=== PATIENT | female | born 1965 | race Caucasian/White ===

== ENCOUNTER 2018-10-16 18:56 | Inpatient (IN) | payer MEDICAID ==
[2018-10-16] MEDS: morphine 4 MG/ML VIAL IV (21:02)
[2018-10-16] MEDS: ONDANSETRON 4 MG INJ IV ×2 (21:02→23:57)
[2018-10-16] MEDS: SOD CHLORIDE 0.9% 1,000 ML IV (21:02)
[2018-10-16] MEDS: IOHEXOL 300MG/ML 150 ML BTL (21:53)
[2018-10-16] MEDS: SOD CHLORIDE 0.9% 100 ML (21:53)
[2018-10-16] MEDS: LIDOCAINE/MYLANTA 40 ML BTL PO (21:57)
[2018-10-16] MEDS: BELLADONNA/PHENOBARBITAL TAB PO (21:57)
[2018-10-16 22:04] LABS: ADD MAN DIFF? NO
[2018-10-16 22:12] LABS: BASOPHILS % 0.4 % (0.0-2.0); EOSINOPHILS # 0.1 10^3/ul (0.0-0.5); EOSINOPHILS % 0.9 % (0.0-7.0); HEMATOCRIT 37.9 % (37.0-47.0); HEMOGLOBIN 12.4 g/dl (12.0-16.0); LYMPHOCYTES # 2.8 10^3/ul (0.8-2.9); LYMPHOCYTES % 36.7 % (15.0-51.0); MEAN CORPUSCULAR HGB CONC 32.7 g/dl (32.0-37.0); MEAN CORPUSCULAR VOLUME 91.5 fl (82.0-101.0); MEAN PLATELET VOLUME 11.6 fl (7.4-10.4); MONOCYTE # 0.5 10^3/ul (0.3-0.9); MONOCYTES % 6.2 % (0.0-11.0); NEUTROPHIL # 4.2 10^3/ul (1.6-7.5); NEUTROPHILS % 55.5 % (39.0-77.0); PLATELET COUNT 239 10^3/UL (140-415); RED BLOOD COUNT 4.14 10^6/ul (4.20-5.40); RED CELL DISTRIBUTION WIDTH 14.4 % (11.5-14.5)
[2018-10-16 22:12] LABS: WHITE BLOOD COUNT 7.5 10^3/ul (4.8-10.8)
[2018-10-16 22:16] LABS: ADD UMIC NO; UR ASCORBIC ACID NEGATIVE (NEGATIVE); UR BILIRUBIN (Dip) NEGATIVE (NEGATIVE); UR BLOOD (Dip) NEGATIVE (NEGATIVE); UR CLARITY CLEAR (CLEAR); UR COLOR STRAW (YELLOW); UR GLUCOSE (Dip) NEGATIVE (NEGATIVE); UR KETONES (Dip) NEGATIVE (NEGATIVE); UR LEUKOCYTE ESTERASE (Dip) NEGATIVE Leu/ul (NEGATIVE); UR NITRITE (Dip) NEGATIVE (NEGATIVE); UR SPECIFIC GRAVITY (Dip) 1.003 (1.003-1.030); UR TOTAL PROTEIN (Dip) NEGATIVE (NEGATIVE); UR UROBILINOGEN (Dip) NEGATIVE (NEGATIVE)
[2018-10-16 22:30] LABS: ALANINE AMINOTRANSFERASE 22 IU/L (13-69); ALBUMIN 4.1 g/dl (3.3-4.9); ALBUMIN/GLOBULIN RATIO 1.13; ALKALINE PHOSPHATASE 63 IU/L (42-121); AMYLASE 82 U/L (11-123); ANION GAP 11 (5-13); ASPARTATE AMINO TRANSFERASE 23 IU/L (15-46); BILIRUBIN,INDIRECT 0.4 mg/dl (0-1.1); BILIRUBIN,TOTAL 0.4 mg/dl (0.2-1.3); BLOOD UREA NITROGEN 10 mg/dl (7-20); CALCIUM 9.3 mg/dl (8.4-10.2); CARBON DIOXIDE 22 mmol/L (21-31); CHLORIDE 107 mmol/L (97-110); CREATININE 0.65 mg/dl (0.44-1.00); Estimated GFR > 60 mL/min (>60); GLUCOSE 139 mg/dl (70-220); LIPASE 57 U/L (23-300); POTASSIUM 3.4 mmol/L (3.5-5.1); SODIUM 140 mmol/L (135-144); TOTAL PROTEIN 7.7 g/dl (6.1-8.1)
[2018-10-16 22:31] LABS: INR 0.96; PROTIME 12.9 Sec (11.9-14.9)
[2018-10-16 22:32] LABS: PARTIAL THROMBOPLASTIN TIME 35.8 Sec (23.0-35.0)
[2018-10-16 22:41] LABS: TROPONIN-I < 0.012 ng/ml (0.000-0.120)
[2018-10-16] MEDS: HYDROmorphONE 1 MG/ML SYG IV (23:54)
[2018-10-17] MEDS ORDERED: METOCLOPRAMIDE 10 MG INJ IV
[2018-10-17] MEDS ORDERED: NACL 0.9% 3 ML SYG IV
[2018-10-17] MEDS: SOD CHLORIDE 0.9% 1,000 ML IV ×3 (00:06→22:27)
[2018-10-17 07:22] LABS: ADD MAN DIFF? NO
[2018-10-17 07:32] LABS: BASOPHILS % 0.3 % (0.0-2.0); EOSINOPHILS # 0.1 10^3/ul (0.0-0.5); EOSINOPHILS % 1.5 % (0.0-7.0); HEMATOCRIT 34.2 % (37.0-47.0); HEMOGLOBIN 11.2 g/dl (12.0-16.0); LYMPHOCYTES # 2.6 10^3/ul (0.8-2.9); LYMPHOCYTES % 41.9 % (15.0-51.0); MEAN CORPUSCULAR HEMOGLOBIN 30.1 pg (29.0-33.0); MEAN CORPUSCULAR HGB CONC 32.7 g/dl (32.0-37.0); MEAN CORPUSCULAR VOLUME 91.9 fl (82.0-101.0); MEAN PLATELET VOLUME 12.1 fl (7.4-10.4); MONOCYTE # 0.4 10^3/ul (0.3-0.9); MONOCYTES % 6.4 % (0.0-11.0); NEUTROPHILS % 49.7 % (39.0-77.0); PLATELET COUNT 204 10^3/UL (140-415); RED BLOOD COUNT 3.72 10^6/ul (4.20-5.40); RED CELL DISTRIBUTION WIDTH 14.5 % (11.5-14.5)
[2018-10-17 07:32] LABS: WHITE BLOOD COUNT 6.1 10^3/ul (4.8-10.8)
[2018-10-17 07:50] LABS: ALANINE AMINOTRANSFERASE 18 IU/L (13-69); ALBUMIN 3.3 g/dl (3.3-4.9); ALKALINE PHOSPHATASE 58 IU/L (42-121); ANION GAP 6 (5-13); ASPARTATE AMINO TRANSFERASE 26 IU/L (15-46); BILIRUBIN,INDIRECT 0.5 mg/dl (0-1.1); BILIRUBIN,TOTAL 0.5 mg/dl (0.2-1.3); BLOOD UREA NITROGEN 9 mg/dl (7-20); CALCIUM 8.4 mg/dl (8.4-10.2); CARBON DIOXIDE 26 mmol/L (21-31); CHLORIDE 112 mmol/L (97-110); CHOL/HDL RATIO 4.8 RATIO; CHOLESTEROL 183 mg/dl (100-200); CREATININE 0.63 mg/dl (0.44-1.00); Estimated GFR > 60 mL/min (>60); GLUCOSE 92 mg/dl (70-220); HDL CHOLESTEROL 38 mg/dl (37-92); LDL CHOLESTEROL,CALCULATED 127 mg/dl; MAGNESIUM 2.3 mg/dl (1.7-2.5); POTASSIUM 4.3 mmol/L (3.5-5.1); SODIUM 144 mmol/L (135-144); TOTAL PROTEIN 6.3 g/dl (6.1-8.1); TRIGLYCERIDES 92 mg/dl (0-149)
[2018-10-17] MEDS: POTASSIUM CHLORIDE (SR) 20 MEQ TAB PO (09:23)
[2018-10-17 09:48] LABS: HEMOGLOBIN A1C 5.6 % (0-5.9)
[2018-10-17] MEDS: morphine 2 MG INJ IV ×3 (10:48→21:13)
[2018-10-17] MEDS: ONDANSETRON 4 MG INJ IV ×2 (10:52→17:04)
[2018-10-17] MEDS: TOPIRAMATE 25 MG TAB PO ×2 (12:30→22:28)
[2018-10-17] MEDS: DULOXETINE 20 MG CAP DR PO ×2 (12:42→22:28)
[2018-10-17] MEDS: GABAPENTIN 300 MG CAP PO ×2 (12:43→22:28)
[2018-10-17] MEDS: PHENOL 1.4% SOLN 180 ML BTL MT (16:59)
[2018-10-17] MEDS: PANTOPRAZOLE 40 MG INJ IV (17:05)
[2018-10-18] MEDS: ACETAMINOPHEN 325 MG TAB PO (04:13)
[2018-10-18 05:28] LABS: ADD MAN DIFF? NO
[2018-10-18 05:32] LABS: WHITE BLOOD COUNT 5.5 10^3/ul (4.8-10.8)
[2018-10-18 05:32] LABS: BASOPHILS % 0.4 % (0.0-2.0); EOSINOPHILS # 0.1 10^3/ul (0.0-0.5); EOSINOPHILS % 1.6 % (0.0-7.0); HEMATOCRIT 36.9 % (37.0-47.0); HEMOGLOBIN 11.7 g/dl (12.0-16.0); LYMPHOCYTES % 35.5 % (15.0-51.0); MEAN CORPUSCULAR HEMOGLOBIN 29.8 pg (29.0-33.0); MEAN CORPUSCULAR HGB CONC 31.7 g/dl (32.0-37.0); MEAN CORPUSCULAR VOLUME 93.9 fl (82.0-101.0); MONOCYTE # 0.4 10^3/ul (0.3-0.9); MONOCYTES % 6.7 % (0.0-11.0); NEUTROPHIL # 3.1 10^3/ul (1.6-7.5); NEUTROPHILS % 55.6 % (39.0-77.0); PLATELET COUNT 209 10^3/UL (140-415); RED BLOOD COUNT 3.93 10^6/ul (4.20-5.40); RED CELL DISTRIBUTION WIDTH 14.4 % (11.5-14.5)
[2018-10-18] MEDS: SOD CHLORIDE 0.9% 1,000 ML IV ×2 (05:46→11:50)
[2018-10-18 06:17] LABS: PHOSPHORUS 4.5 mg/dl (2.5-4.9)
[2018-10-18 06:31] LABS: ANION GAP 5 (5-13); BLOOD UREA NITROGEN 8 mg/dl (7-20); CALCIUM 8.9 mg/dl (8.4-10.2); CARBON DIOXIDE 26 mmol/L (21-31); CHLORIDE 111 mmol/L (97-110); CREATININE 0.71 mg/dl (0.44-1.00); Estimated GFR > 60 mL/min (>60); GLUCOSE 93 mg/dl (70-220); POTASSIUM 4.1 mmol/L (3.5-5.1); SODIUM 142 mmol/L (135-144)
[2018-10-18] MEDS: PANTOPRAZOLE 40 MG INJ IV (06:40)
[2018-10-18] MEDS: ONDANSETRON 4 MG INJ IV (08:16)
[2018-10-18] MEDS: morphine 2 MG INJ IV (08:16)
[2018-10-18] MEDS: GABAPENTIN 300 MG CAP PO ×2 (08:16→12:15)
[2018-10-18] MEDS: DULOXETINE 20 MG CAP DR PO ×2 (08:16→12:14)
[2018-10-18] MEDS: TOPIRAMATE 25 MG TAB PO (08:17)
[2018-10-18] MEDS: HYOSCYAMINE 0.125 MG SUBL TAB PO (11:22)
== END 2018-10-18 15:06 | disposition home or self-care (01) | DRG 392 ==
LOC: PP2 23:17 → E/R 18:56
DX: R10.9 Unspecified abdominal pain (principal); E66.9 Obesity, unspecified; Z68.30 Body mass index [BMI] 30.0-30.9, adult; F41.9 Anxiety disorder, unspecified; F32.9 Major depressive disorder, single episode, unspecified; G50.0 Trigeminal neuralgia; E87.6 Hypokalemia; D64.9 Anemia, unspecified
CPT/HCPCS: 74177; 74250; 76705; 80048; 80053; 80061; 81003; 82150; 83036; 83690; 83735; 84100; 84443; 84484; 85025; 85610; 85730; 86674; 87045; 87086; 87177; 93005; 96374; 96375; 99285-25; G0378